=== PATIENT | female | born 1965 | race Caucasian/White ===

== ENCOUNTER → 2023-10-17 08:20 | Outpatient (REF) | payer OTHER, SELFPAY | LOC: HWWDC 08:20 | PROVIDERS: ATTENDING PHYSICIAN Family Medicine; REFERRING PHYSICIAN Obstetrics & Gynecology Gynecology | DX: Z12.31 Encounter for screening mammogram for malignant neoplasm of breast (principal) | CPT/HCPCS: 77063; 77067 ==

== ENCOUNTER → 2024-05-07 07:58 | Outpatient (REF) | payer OTHER, SELFPAY | LOC: HWRAD 07:58 | PROVIDERS: ATTENDING PHYSICIAN Internal Medicine Gastroenterology; FAMILY PHYSICIAN Family Medicine | DX: R10.10 Upper abdominal pain, unspecified (principal) | CPT/HCPCS: 76700 ==

== ENCOUNTER → 2024-11-11 07:46 | Outpatient (REF) | payer OTHER, SELFPAY | LOC: HWWDC 07:46 | PROVIDERS: ATTENDING PHYSICIAN Obstetrics & Gynecology Gynecology; FAMILY PHYSICIAN Family Medicine | DX: Z78.0 Asymptomatic menopausal state (principal); Z12.31 Encounter for screening mammogram for malignant neoplasm of breast | CPT/HCPCS: 77063; 77067; 77080 ==

== ENCOUNTER 2025-01-12 19:48 | Emergency (ER) | payer OTHER, SELFPAY ==
[2025-01-12 19:53] VITALS: BP 154/90
--- NOTE | 2025-01-12 23:16 | ED.MUSCINJ ---
HPI-Injury
General
Chief Complaint: Musculo-Skeletal Complaint
Source: patient
Exam Limitations: none
Time Seen by Provider: 01/12/25 21:03
Nursing documentation reviewed up to this point in time: agreed with
History of Present Illness-Injury
Is this injury a work related problem?: No
Is pt an associate of [facility]?: No
Initial Injury comments:
Patient to ED after trip [place] fall [place] the [place]. Denies hitting her head. Complains of pain to her right dorsal foot. Injury occurred earlier today.
Past History
Past History
ED Past Medical History: Asthma, GERD and HTN
Review of Systems
Review of Systems
Allergies reviewed?: Yes
All Other Systems: ROS reviewed and negative except as documented in HPI and ROS
Constitutional: Reports no symptoms
Musculoskeletal: Reports joint pain (pain to right dorsal foot)
Skin: Reports no symptoms
Neurological: Reports no symptoms
Psychiatric: Reports no symptoms
Musculoskeletal Injury Exam
Musculoskeletal Injury Exam
Right Dorsal Foot:
Pain with Movement?: Moderate
Tender to palpation?: Moderate
Soft tissue swelling?: Mild
External deformity and angulation?: None
Joint effusion?: None
Contusion?: Moderate
Hematoma-local bleeding into tissue?: Mild
Strain- Sprain- Tear (Connective tissue injury)?: Moderate
Crepitus with movement?: No
Joint instability?: No
Malalignment/deformity?: No
Range of motion: Limited
Distal skin color and temperature: normal-warm & good color
Capillary Refill: normal
Normal distal neurovascular exam?: Yes
Peripheral Pulses: posterior tibial (right): 3+ and dorsalis pedis (right): 3+
Phy Exam
General Physical Exam
General Presentation: well appearing and mild distress
General age: appears stated age
General Skin: warm and dry
General Habitus: normal
General Mental: alert
Musculoskeletal Exam
Musculoskeletal Exam: neuro vasc intact and other (achilles intact, no tenderness base of 5th, proximal tib/fib)
Skin Exam
Skin Exam: normal color and warm/dry
Psychiatric Exam
Psychiatric Exam: normal mood/affect
Injury Course
Orders/Labs/Results
Orders:
Orders
01/12/25 19:59
Foot, Right 3 View [CR Foot - Right Min 3 Views] Urgent
Comment:
Reason For Exam: injury
*Radiology
Radiology exam reviewed: radiology read reviewed
*Pulse Oximetry
SaO2: 95
Oxygen Mode of Delivery: Room air
Patient hypoxic: no
*Critical Care Note
Total Time (30-74mins, 75-104mins- exclusive of procedures): Not Applicable
ED Attending Note
-
Portions of this chart may have been created with voice recognition software.� Occasional wrong word or��sound alike� substitutions may have occurred due to the inherent limitations of voice recognition software.
Discharge Plan
Departure
Patient Disposition: Home (Routine Discharge)
Date of Disposition: 01/12/25
Time of Disposition: 21:20
Patient with high blood pressure during this ER visit?: No
Condition: Good
Covid-19: Not Applicable
Discharge Problem:
Foot sprain
Instructions: Ibuprofen, Using Cold for Pain, Foot sprain - ED discharge instructions
Prescriptions:
No Action
cetirizine 10 MG tablet
10 mg PO DAILY
aspirin 325 MG tablet
325 mg PO BID
acetaminophen [Tylenol Extra Strength] 500 MG tablet
500 mg PO Q6HPRN PRN (Reason: mild pain/headaches)
lansoprazole [Prevacid] 30 MG capsule,delayed release(DR/EC)
30 mg PO DAILY
losartan 25 MG tablet
25 mg PO DAILY
docusate sodium 100 MG capsule
100 mg PO BID
bisacodyl 5 MG tablet,delayed release (DR/EC)
5 mg PO HS
lidocaine [Aspercreme (lidocaine)] 1 PATCH adhesive patch,medicated
1 patch topical DAILY 0RF
famotidine 20 MG tablet
40 mg PO BID Qty: 40 0RF
ascorbic acid (vitamin C) [Vitamin C] 500 MG tablet
1,000 mg PO BID Qty: 40 0RF
benzonatate 100 MG capsule
200 mg PO TIDPRN PRN (Reason: cough) Qty: 30 0RF
albuterol sulfate 1 PUFF HFA aerosol inhaler
2 puff inhalation R Q4HPRN PRN (Reason: shortness of breath or wheeze) Qty: 1 0RF
zinc sulfate 220 MG capsule
220 mg PO DAILY Qty: 10 0RF
melatonin 5 MG tablet
5 mg PO DAILY@1999 Qty: 10 0RF
cholecalciferol (vitamin D3) 2,000 UNITS tablet
2,000 units PO DAILY Qty: 0 0RF
benzocaine-menthol [Cepacol Sore Throat (reza-men)] 1 LOZENGE lozenge
1 aj PO Q4HPRN PRN (Reason: throat irritation) Qty: 0 0RF
codeine-guaifenesin [Guaiatussin AC] 10 ML liquid
5 ml PO Q6HPRN PRN (Reason: cough) Qty: 240 0RF
dexamethasone 4 MG tablet
6 mg PO .SEE INSTRUCTIONS Qty: 8 0RF
Rx Instructions:
6 mg daily for 4days , 4 mg daily for a day 2 mg daily for a daily and stop
lubiprostone 24 MCG capsule
24 mcg PO BID Qty: 40 0RF
Referrals:
Richard Nichols MD [Active, Orthopedics]
Referral Note: Follow up if your symptoms do not improve over then next week.
NONE,* [Active, Internal Medicine]
Interventions
Interventions:
*Risk Screen - Suicide Last Done: 01/12/25 19:53
*General Assessment Last Done: 01/12/25 19:53
*Neglect/Abuse Screening Last Done: 01/12/25 19:53
*ED- Fall Risk Assessment Last Done: 01/12/25 19:53
*ED COVID-19 Vaccine History Last Done: 01/12/25 19:53
*Nursing Disposition Last Done: 01/12/25 22:15
Discharge Date and Time
Discharge Date/Time: 01/12/25 22:00
Print Language: LIBYAN
== END 2025-01-12 22:00 | disposition home or self-care (01) ==
LOC: EMR 19:48
PROVIDERS: EMERGENCY PHYSICIAN Emergency Medicine; FAMILY PHYSICIAN Family Medicine
DX: S93.601A Unspecified sprain of right foot, initial encounter (principal); W01.0XXA Fall on same level from slipping, tripping and stumbling without subsequent striking against object, initial encounter; Y93.01 Activity, walking, marching and hiking; Y92.832 Beach as the place of occurrence of the external cause; I10 Essential (primary) hypertension; J45.909 Unspecified asthma, uncomplicated
CPT/HCPCS: 99283; 73630